=== PATIENT | male | born 1985 | race African-American/Black ===

== ENCOUNTER 2019-01-17 06:25 | Emergency (ER) | payer SELFPAY ==
--- NOTE | 2019-01-17 06:44 | ER ---
Nurse's Notes [facility] Name: Isabella Canseco Age: 33 yrs Sex: Male : 1985 Arrival Date: 01/17/2019 Time: 06:31 Bed 20 Private MD: Diagnosis: Low back pain;Sciatica, left side;Muscle spasm of back Presentation: 01/17 06:40 Presenting complaint: Patient states: Was at work on Wednesday and started hurting on the ao back. Patient unable to tolerate pain. Patient report lower back pain. Patient negative for nausea and vomiting. Transition of care: patient was not received from another setting of care. Onset of symptoms is unknown. Risk Assessment: Do you want to hurt yourself or someone else? Patient reports no desire to harm self or others. Initial Sepsis Screen: Does the patient meet any 2 criteria? No. Patient's initial sepsis screen is negative. Does the patient have a suspected source of infection? No. Patient's initial sepsis screen is negative. Care prior to arrival: None. 06:40 Method Of Arrival: Ambulatory ao 06:40 Acuity: TASHA 4 ao Triage Assessment: 06:45 General: Appears in no apparent distress. comfortable, Behavior is calm, cooperative, ao appropriate for age. Pain: Complains of pain in back Pain does not radiate. Pain currently is 10 out of 10 on a pain scale. EENT: No signs and/or symptoms were reported regarding the EENT system. Neuro: Level of Consciousness is awake, alert, obeys commands, Oriented to person, place, time, situation, Appropriate for age Moves all extremities. Full function. Cardiovascular: No deficits noted. Respiratory: Airway is patent Respiratory effort is even, unlabored, Respiratory pattern is regular, symmetrical. GI: Abdomen is non-distended. : No signs and/or symptoms were reported regarding the genitourinary system. Derm: No signs and/or symptoms reported regarding the dermatologic system. Musculoskeletal: Circulation, motion, and sensation intact. Range of motion: intact in all extremities. Historical: - Allergies: 06:42 No Known Allergies; ao - Home Meds: 06:42 None [Active]; ao - PMHx: 06:42 None; ao - PSHx: 06:42 None; ao - Immunization history:: Adult Immunizations up to date. - Social history:: Smoking status: Patient uses tobacco products, denies chronic smoking, but will smoke occasionally, Patient/guardian denies using alcohol, street drugs. - Ebola Screening: : Patient negative for fever greater than or equal to 101.5 degrees Fahrenheit, and additional compatible Ebola Virus Disease symptoms Patient denies exposure to infectious person Patient denies travel to an Ebola-affected area in the 21 days before illness onset. Screenin:44 Abuse screen: Denies threats or abuse. Denies injuries from another. Nutritional ao screening: No deficits noted. Tuberculosis screening: No symptoms or risk factors identified. Fall Risk None identified. Vital Signs: 06:42 BP 146 / 88; Pulse 86; Resp 18; Temp 97.9(O); Pulse Ox 100% on R/A; Weight 99.79 kg ao (R); Height 5 ft. 10 in. (177.80 cm) (R); Pain 10/10; 06:42 Body Mass Index 31.57 (99.79 kg, 177.80 cm) ao ED Course: 06:31 Patient arrived in ED. do 06:35 Suzette Oropeza FNP-C is PHCP. snw 06:35 Joss Albarran MD is Attending Physician. snw 06:39 Leon Raines, XOCHITL is Primary Nurse. ao 06:41 Triage completed. ao 06:44 Arm band placed on right wrist. Patient placed in an exam room, on a stretcher, on ao pulse oximetry, Patient notified of wait time. 06:46 Patient has correct armband on for positive identification. Pulse ox on. ao 06:53 No provider procedures requiring assistance completed. Patient did not have IV access ao during this emergency room visit. Administered Medications: 06:52 Drug: TORadol 30 mg Route: IM; Site: left deltoid; ao 06:52 Follow up: Response: Medication administered at discharge. ao 06:52 Drug: Valium 10 mg Route: PO; ao 06:52 Follow up: Response: Medication administered at discharge. ao Outcome: 06:42 Discharge ordered by . snw 06:53 Discharged to home ambulatory. ao 06:53 Condition: stable 06:53 Discharge instructions given to patient, Instructed on discharge instructions, follow up and referral plans. Demonstrated understanding of instructions, follow-up care, medications, Prescriptions given X 2. 07:08 Patient left the ED. ao Signatures: Suzette Oropeza, BONUS CLERK-C BONUS CLERK-Csnw Leon Raines, RN RN Dia Carlisle do
--- NOTE | 2019-01-17 06:44 | EDPHYS ---
Physician Documentation [facility] Name: Isabella Canseco Age: 33 yrs Sex: Male : 1985 Arrival Date: 01/17/2019 Time: 06:31 Bed 20 Private MD: ED Physician Joss Albarran HPI: 01/17 07:08 This 33 yrs old Black Male presents to ER via Ambulatory with complaints of Back Pain. snw 07:08 The patient presents with pain that is acute. The symptoms are located in the low back. snw Onset: The symptoms/episode began/occurred gradually, 5 day(s) ago, and became persistent. Location: left buttock. Associated signs and symptoms: Pertinent positives: none. 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 Severity of symptoms: At their worst the symptoms were moderate, severe. The patient has not experienced similar symptoms in the past. Historical: - Allergies: 06:42 No Known Allergies; ao - Home Meds: 06:42 None [Active]; ao - PMHx: 06:42 None; ao - PSHx: 06:42 None; ao - Immunization history:: Adult Immunizations up to date. - Social history:: Smoking status: Patient uses tobacco products, denies chronic smoking, but will smoke occasionally, Patient/guardian denies using alcohol, street drugs. - Ebola Screening: : Patient negative for fever greater than or equal to 101.5 degrees Fahrenheit, and additional compatible Ebola Virus Disease symptoms Patient denies exposure to infectious person Patient denies travel to an Ebola-affected area in the 21 days before illness onset. ROS: 07:08 Constitutional: Negative for fever, chills, and weight loss, Eyes: Negative for injury, snw pain, redness, and discharge, ENT: Negative for injury, pain, and discharge, Neck: Negative for injury, pain, and swelling, Cardiovascular: Negative for chest pain, palpitations, and edema, Respiratory: Negative for shortness of breath, cough, wheezing, and pleuritic chest pain, Abdomen/GI: Negative for abdominal pain, nausea, vomiting, diarrhea, and constipation, : Negative for injury, bleeding, discharge, and swelling, MS/Extremity: Negative for injury and deformity, Skin: Negative for injury, rash, and discoloration, Neuro: Negative for headache, weakness, numbness, tingling, and seizure, Psych: Negative for depression, anxiety, suicide ideation, homicidal ideation, and hallucinations. 07:08 Back: Positive for decreased range of motion, pain at rest, pain with movement, radiated pain, of the left low back. Exam: 07:08 Constitutional: This is a well developed, well nourished patient who is awake, alert, snw and in no acute distress. Head/Face: Normocephalic, atraumatic. Eyes: Pupils equal round and reactive to light, extra-ocular motions intact. Lids and lashes normal. Conjunctiva and sclera are non-icteric and not injected. Cornea within normal limits. Periorbital areas with no swelling, redness, or edema. ENT: Nares patent. No nasal discharge, no septal abnormalities noted. Tympanic membranes are normal and external auditory canals are clear. Oropharynx with no redness, swelling, or masses, exudates, or evidence of obstruction, uvula midline. Mucous membranes moist. Neck: Trachea midline, no thyromegaly or masses palpated, and no cervical lymphadenopathy. Supple, full range of motion without nuchal rigidity, or vertebral point tenderness. No Meningismus. Chest/axilla: Normal chest wall appearance and motion. Nontender with no deformity. No lesions are appreciated. Cardiovascular: Regular rate and rhythm with a normal S1 and S2. No gallops, murmurs, or rubs. Normal PMI, no JVD. No pulse deficits. Respiratory: Lungs have equal breath sounds bilaterally, clear to auscultation and percussion. No rales, rhonchi or wheezes noted. No increased work of breathing, no retractions or nasal flaring. Abdomen/GI: Soft, non-tender, with normal bowel sounds. No distension or tympany. No guarding or rebound. No evidence of tenderness throughout. Skin: Warm, dry with normal turgor. Normal color with no rashes, no lesions, and no evidence of cellulitis. MS/ Extremity: Pulses equal, no cyanosis. Neurovascular intact. Full, normal range of motion. Neuro: Awake and alert, GCS 15, oriented to person, place, time, and situation. Cranial nerves II-XII grossly intact. Motor strength 5/5 in all extremities. Sensory grossly intact. Cerebellar exam normal. Normal gait. Psych: Awake, alert, with orientation to person, place and time. Behavior, mood, and affect are within normal limits. 07:08 Back: pain, that is moderate, ROM is painful, CVA tenderness, is absent, muscle spasm, is appreciated in the low back area. 07:12 Neuro: Exam negative for acute changes. snw Vital Signs: 06:42 BP 146 / 88; Pulse 86; Resp 18; Temp 97.9(O); Pulse Ox 100% on R/A; Weight 99.79 kg ao (R); Height 5 ft. 10 in. (177.80 cm) (R); Pain 10/10; 06:42 Body Mass Index 31.57 (99.79 kg, 177.80 cm) ao MDM: 06:42 Patient medically screened. snw 07:11 Data reviewed: vital signs, nurses notes. Data interpreted: Pulse oximetry: on room air snw is 100 %. Interpretation: normal. Counseling: I had a detailed discussion with the patient and/or guardian regarding: the historical points, exam findings, and any diagnostic results supporting the discharge/admit diagnosis, the presence of at least one elevated blood pressure reading (>120/80) during this emergency department visit, the need for outpatient follow up, to return to the emergency department if symptoms worsen or persist or if there are any questions or concerns that arise at home. Special discussion: Based on the history and exam findings, there is no indication for further emergent testing or inpatient evaluation. I discussed with the patient/guardian the need to see the primary care provider for further evaluation of the symptoms. Administered Medications: 06:52 Drug: TORadol 30 mg Route: IM; Site: left deltoid; ao 06:52 Follow up: Response: Medication administered at discharge. ao 06:52 Drug: Valium 10 mg Route: PO; ao 06:52 Follow up: Response: Medication administered at discharge. ao Disposition: 01/17/19 06:42 Discharged to Home. Impression: Low back pain, Sciatica, left side, Muscle spasm of back. - Condition is Stable. - Discharge Instructions: Back Pain, Adult, Muscle Cramps and Spasms, Musculoskeletal Pain, Sciatica, Back Injury Prevention, [id number], Cryotherapy, Rehydration, Adult, Heat Therapy. - Prescriptions for Diclofenac Sodium 75 mg Oral Tablet Sustained Release - take 1 tablet by ORAL route 2 times per day; 30 tablet. orphenadrine citrate 100 mg Oral Tablet Sustained Release - take 1 tablet by ORAL route 2 times per day As needed; 20 tablet. - Work release form, Medication Reconciliation Form, Thank You Letter, Antibiotic Education, Prescription Opioid Use form. - Follow up: Private Physician; When: 2 - 3 days; Reason: Recheck today's complaints, Continuance of care, Re-evaluation by your physician. Follow up: Emergency Department; When: As needed; Reason: Worsening of condition. Signatures: Suzette Oropeza, JIA-C ASTRONOMY TEACHER-CsnLeon Dietz RN RN ao Corrections: (The following items were deleted from the chart) 07:08 06:42 01/17/2019 06:42 Discharged to Home. Impression: Low back pain; Sciatica, left ao side; Muscle spasm of back. Condition is Stable. Forms are Medication Reconciliation Form, Thank You Letter, Antibiotic Education, Prescription Opioid Use. Follow up: Private Physician; When: 2 - 3 days; Reason: Recheck today's complaints, Continuance of care, Re-evaluation by your physician. Follow up: Emergency Department; When: As needed; Reason: Worsening of condition. snw
[2019-01-17] MEDS ORDERED: DIAZEPAM 5 MG TABLET ONE (07:07)
[2019-01-17] MEDS ORDERED: KETOROLAC 30 MG/ML INJ ONE (07:07)
== END 2019-01-17 07:08 | disposition home or self-care (01) ==
LOC: ER 06:25
DX: M54.32 Sciatica, left side (principal); M62.830 Muscle spasm of back; Z72.0 Tobacco use
CPT/HCPCS: 96372; 99283